=== PATIENT | male | born 1930 | race Caucasian/White ===

== ENCOUNTER 2019-07-18 16:28 | Inpatient (IN) | payer OTHER ==
[~2019-07-18] VITALS: Ht 167.6 cm; Wt 71.7 kg
[2019-07-18] VITALS (9 sets, daily range): BP systolic 124–147; BP diastolic 76–102
[2019-07-18 16:57] LABS: HEMATOCRIT 33.5 % (42.0-52.0); HEMOGLOBIN 11.4 gm/dL (14.0-18.0); MCH 32.8 pg (26.0-34.0); MCHC 33.9 g/dL (28.0-37.0); MCV 96.9 fL (80.0-100.0); MPV 10.5 fl. (7.2-11.1); NUCLEATED RBCS 0 /100WBC; PLATELET COUNT* 118 thou/uL (150-400); RBC 3.46 mil/uL (4.50-6.00); WBC 6.8 thou/uL (4.0-11.0)
[2019-07-18] MEDS ORDERED: ELIQUIS5 MG PO (16:58)
[2019-07-18] MEDS ORDERED: LASIX 40 MG TAB40 M2 PO (16:58)
[2019-07-18] MEDS ORDERED: KEFLEX500 M2 PO (16:58)
[2019-07-18] MEDS ORDERED: ASA81BEC PO (16:58)
[2019-07-18 17:07] LABS: APTT 28.1 Seconds (25.0-31.3); INR 1.7; PROTIME 16.7 Seconds (9.20-11.50)
[2019-07-18 17:09] LABS: CALCIUM 8.8 mg/dL (8.5-10.1); CREATININE 2.2 mg/dL (0.6-1.3); POTASSIUM 5.1 mmol/L (3.5-5.1)
[2019-07-18 17:20] LABS: ALBUMIN 3.4 g/dL (3.4-5.0); TOTAL BILIRUBIN 0.8 mg/dL (<0.1-1.0); TOTAL PROTEIN 8.2 g/dL (6.4-8.2)
[2019-07-18 17:48] LABS: ABSOLUTE LYMPHOCYTES 0.7 thou/uL (0.8-5.3); ABSOLUTE MONOCYTES 0.1 thou/uL (0.0-1.2); ABSOLUTE NEUTROPHILS 5.9 thou/uL (1.6-8.1); ANISOCYTOSIS 1+; PLATELET ESTIMATE DECREASED; POLYCHROMASIA Occasional
[2019-07-18] MEDS ORDERED: PENICILLIN VK500 M1 PO (18:54)
[2019-07-18] MEDS ORDERED: KLOR-CON 1010 MEQ PO (18:55)
[2019-07-18] MEDS ORDERED: IRON325 M1 PO (18:56)
[2019-07-18] MEDS ORDERED: VITAMIN D32000 UNI2 PO (18:58)
[2019-07-18 20:54] LABS: URINE BILIRUBIN NEGATIVE (Negative); URINE BLOOD NEGATIVE (Negative); URINE CLARITY CLEAR; URINE COLOR YELLOW; URINE GLUCOSE-RANDOM NEGATIVE (Negative); URINE KETONES NEGATIVE (Negative); URINE LEUKOCYTES-REFLEX NEGATIVE (Negative); URINE NITRITE-REFLEX NEGATIVE (Negative); URINE PROTEIN NEGATIVE (Negative); URINE UROBILINOGEN 0.2 E.U./dl (0.2-1.0)
[2019-07-19] VITALS (15 sets, daily range): BP systolic 89–123; BP diastolic 59–77
--- NOTE | 2019-07-19 08:51 | CARD ---
[address] [address] CARDIAC CATH REPORT Name: RENETTA COLLADO Room: [address] IN .R.#: [id number] Admission: 07/18/19 Attend Phys: Herve Alarcon MD, F Discharge: Date of : [birth year] Report #: [id number] THIS REPORT FOR: //name// cc: Sana Fierro NP, Stefany NP ~ THIS REPORT FOR: //name// APPROVED REPORT Study performed: 07/18/2019 16:35:44 Patient Status: ED Room #: Event Personnel: Herve Alarcon Director Of Estate, Allison Bourgeois RN RN, Dhruv Rodriguez RTR Scrub, Dalila Rosales RTR Monitor Exam: Temperary Pacemaker Insertion Indications: Complete Heart Block The patient is a 89 year-old male with a history of Syncope. Patient Info Anticoagulant Therapy: eliquis Conscious Sedation No sedation was given. Case start time was 17:29 and case end time was 17:36. Implanted Devices: temporary pacemaker lead Procedure The patient underwent informed consent. We discussed the details of the procedure including the risks, which include, but not limited to bleeding, infection, vascular damage, cardiac perforation, and pneumothorax. He understood these risks and was willing to proceed. As such, was brought to the EP/Cardiac Catheterization laboratory in a fasting and sedated state and prepped and draped in a The patient was prepped and draped in a sterile fashion. The right leg was infiltrated with 2% lidocaine. The right femoral vein was accessed. A 6 Fr sheath was inserted and a temperary pacing lead was inserted into the left ventricle. The temperary pacemaker was tested for capture. Capture threshold was noted. The sheath and temperary pacing lead was secured the right leg using 0 silk suture. A sterile dressing was place over site for protection. Electrode Parameters Ventricular Threshold: less than 1 [place] [address] CARDIAC CATH REPORT Name: RENETTA COLLADO Room: [address] IN [facility]#: [id number] Admission: 07/18/19 Attend Phys: Herve Alarcon MD, F Discharge: Date of : [birth year] Report #: [id number] Complications The patient tolerated the procedure well and there were no complications associated with the procedure. Findings Specimens Removed: No Estimated Blood Loss: 2 ml Conclusion successful placement of a temporary pacemaker lead <ELECTRONICALLY SIGNED> By: Herve Alarcon MD, [facility] 07/19/19 0850 0850 [id number] Alarcon MD, FACC /INF
--- NOTE | 2019-07-19 08:56 | CON ---
[address] [address] CONSULTATION Name: RENETTA COLLADO Room: [address] ADM IN M.R.#: [id number] Admission: 07/18/19 Attend Phys: Herve Alarcon MD, F Discharge: Date of : [birth year] Report #: [id number] THIS REPORT FOR: //name// cc: Sana Fierro NP, Stefany NP ~ THIS REPORT FOR: //name// CC: Herve Fierro DATE OF SERVICE: 07/18/2019 CARDIOLOGY CONSULTATION HISTORY OF PRESENT ILLNESS: The patient is an 89-year-old white male who I was asked to see in the Emergency Room today after he had evidence of complete heart block. Unfortunately, no old records are available. The patient has never been here to [place] before. There are no family members available. According to the patient, he has had a couple of coronary stents placed in the past. He denies any recent chest pain. Recently, he has been falling. He apparently had a syncopal spell. Today, his family called the ambulance. He was found to be in complete heart block. He was paced externally and was brought to the Emergency Room. I was asked to see him on an emergent basis. He denies any recent palpitations. He has a long history of shortness of breath. No significant edema. PAST MEDICAL HISTORY: He has had appendectomy, removal of a hemangioma. MEDICATIONS: Include aspirin, Eliquis, Lasix. ALLERGIES: He has no known drug allergies. FAMILY HISTORY: Negative for heart disease. SOCIAL HISTORY: He is . He and his live in [place]. No smoking. REVIEW OF SYSTEMS: He has no history of stroke, asthma, peptic ulcer disease, liver disease, cancer, psychiatric illness, chronic skin condition. PHYSICAL EXAMINATION: GENERAL: Revealed an elderly, frail-appearing male, appeared in no distress. VITAL SIGNS: He had a blood pressure of 100. Pulse is being externally paced at 80. HEENT: He was anicteric. Conjunctivae are pink. Mucous membranes were moist. CHEST: Clear [place] [address] CONSULTATION Name: RENETTA COLLADO Room: [address]#: [id number] Admission: 07/18/19 Attend Phys: Herve Alarcon MD, F Discharge: Date of : [birth year] Report #: [id number] CARDIOVASCULAR: Regular rate and rhythm after being paced. ABDOMEN: Soft. EXTREMITIES: Had no edema. Dorsalis pedis pulse cannot be palpated. IMPRESSION AND RECOMMENDATIONS: 1. Complete heart block. Recommend temporary pacemaker. 2. Use of Eliquis. Possible previous history of atrial fibrillation. We will obtain old records. 3. Coronary artery disease and previous stenting. No recent angina. 4. Chronic kidney disease. <ELECTRONICALLY SIGNED> By: Herve Alarcon MD, FACC 07/19/19 0856 1642 [id number] Ye Alarcon MD, [facility] /nt
--- NOTE | 2019-07-19 12:50 | 2DMMODE ---
[place] [address] 2 D/M-MODE ECHOCARDIOGRAM Name: RENETTA COLLADO Kya Room: [address] [facility] IN .R.#: [id number] Admission: 07/18/19 Attend Phys: Clarissa parra Sa Discharge: Date of : [birth year] Date of Service: 07/19/19 1248 Report #: [id number] THIS REPORT FOR: cc: Sana Fierro NP, Stefany NP Blick, David R. MD [facility] ~ APPROVED REPORT Study performed: 07/19/2019 10:51:59 EXAM: Comprehensive 2D, Doppler, and color-flow Echocardiogram Patient Location: In-Patient Room #: 002 Status: routine BSA: 1.86 HR: 70 bpm BP: 105/60 mmHg Rhythm: NSR Other Information Study Quality: Excellent Indications Abnormal ECG Syncope 2D Dimensions IVSd: 20.80 (7-11mm) LVOT Diam: 19.14 (18-24mm) LVDd: 44.70 mm PWd: 12.28 (7-11mm) Ascending Ao: 35.86 (22-36mm) LVDs: 39.87 (25-40mm) Aortic Root: 36.73 mm Volumes Left Atrial Volume (Systole) LA ESV Index: 55.70 mL/m2 Aortic Valve AoV Peak Abram.: 1.14 m/s AO Peak Gr.: 5.23 mmHg LVOT Max P.41 mmHg AO Mean Gr.: 2.61 mmHg LVOT Mean P.12 mmHg LVOT Max V: 0.78 m/s AO V2 VTI: 17.20 cm LVOT Mean V: 0.48 m/s DAMIÁN (VTI): 2.53 cm2 LVOT V1 VTI: 15.11 [place] [address] 2 D/M-MODE ECHOCARDIOGRAM Name: RENETTA COLLADO Room: [address] IN .R.#: [id number] Admission: 07/18/19 Attend Phys: Clarissa parra Sa Discharge: Date of : [birth year] Date of Service: 07/19/19 1248 Report #: [id number] AI Jenkins: 1.50 m/s2 AI PHT: 625.93 ms Mitral Valve E/A Ratio: 2.04 MV Decel. Time: 213.41 ms MV E Max Abram.: 0.65 m/s MV PHT: 61.89 ms MVA (PHT): 3.55 cm2 TDI E/Lateral E': 10.83 E/Medial E': 16.25 Medial E' Abram.: 0.04 m/s Lateral E' Abram.: 0.06 m/s Pulmonary Valve PV Peak Abram.: 0.77 m/s PV Peak Gr.: 2.39 mmHg Tricuspid Valve RAP Estimate: 5.00 mmHg TR Peak Gr.: 43.88 mmHg RVSP: 48.00 mmHg PA Pressure: 48.00 mmHg Left Ventricle The left ventricle is normal size. paradoxical septal motion consistent with a paced rhythm moderate concentric left ventricular hypertrophy. Left ventricular systolic function is mildly decreased. LVEF is 40-45%. Grade IV - fixed restrictive diastolic dysfunction. Right Ventricle Right ventricle is dilated. The right ventricular systolic function is normal. Pacemaker lead is present in the right ventricle. Atria Left atrium is severely dilated. Right atrium is dilated. Aortic Valve Mild aortic valve sclerosis. Mild aortic regurgitation. There is no aortic valvular stenosis. Mitral Valve There is mitral annular calcification. Moderate mitral regurgitation. No evidence of mitral valve stenosis[place] [address] 2 D/M-MODE ECHOCARDIOGRAM Name: RENETTA COLLADO Room: [address] IN [facility]#: [id number] Admission: 07/18/19 Attend Phys: Clarissa parra Sa Discharge: Date of : [birth year] Date of Service: 07/19/19 1248 Report #: [id number] The tricuspid valve is normal in structure. Mild tricuspid regurgitation. estimated pa pressure 40 mm Hg Pulmonic Valve The pulmonary valve is normal in structure. Mild pulmonic regurgitation. Great Vessels The aortic root is normal in size. IVC is normal in size and collapses >50% with inspiration. Pericardium Moderate circumferential pericardial effusion. <Conclusion> moderate concentric left ventricular hypertrophy. LVEF is 40-45%. Left atrium is severely dilated. Right atrium is dilated. Mild aortic valve sclerosis. Mild aortic regurgitation. Moderate mitral regurgitation. Mild tricuspid regurgitation. estimated pa pressure 40 mm Hg Moderate circumferential pericardial effusion. <ELECTRONICALLY SIGNED> By: Herve Alarcon MD, FACC 07/19/19 1248 1248 1248 Herve Alarcon MD, FACC /INF
[2019-07-19 13:56] LABS: APTT 29.1 Seconds (25.0-31.3); INR 1.6; PROTIME 16.2 Seconds (9.20-11.50)
[2019-07-20 00:16] VITALS: BP 110/53
[2019-07-20 04:02] VITALS: BP 125/65
[2019-07-20 04:14] LABS: HEMATOCRIT 31.4 % (42.0-52.0); HEMOGLOBIN 10.7 gm/dL (14.0-18.0); MCHC 34.2 g/dL (28.0-37.0); MCV 96.6 fL (80.0-100.0); MPV 9.6 fl. (7.2-11.1); RBC 3.25 mil/uL (4.50-6.00); RDW-CV 16.3 % (10.5-14.5); WBC 6.9 thou/uL (4.0-11.0)
[2019-07-20 04:38] LABS: CALCIUM 8.3 mg/dL (8.5-10.1); CREATININE 1.9 mg/dL (0.6-1.3); MAGNESIUM 2.2 mg/dL (1.8-2.4); POTASSIUM 4.6 mmol/L (3.5-5.1)
[2019-07-20 04:42] LABS: ALBUMIN 2.7 g/dL (3.4-5.0); CALCIUM 8.3 mg/dL (8.5-10.1); CREATININE 1.8 mg/dL (0.6-1.3); POTASSIUM 4.7 mmol/L (3.5-5.1); TOTAL BILIRUBIN 0.9 mg/dL (<0.1-1.0)
[2019-07-20 07:30] VITALS: BP 126/64
--- NOTE | 2019-07-20 09:39 | CARD ---
[address] [address] CARDIAC CATH REPORT Name: HEAVENRENETTA Kya Room: [address] IN .R.#: [id number] Admission: 07/18/19 Attend Phys: Clarissa parra Davis Discharge: Date of : [birth year] Report #: [id number] THIS REPORT FOR: //name// cc: Sana Fierro NP, Stefany NP ~ THIS REPORT FOR: //name// APPROVED REPORT Study performed: 07/19/2019 15:07:22 Patient Status: In-Patient Room #: Exam: Insertion of Single Chamber Permanent Pacemaker Indications: Sick Sinus Syndrome/Tachy Bethel Syndrome The patient is a 89 year-old male with a history of Syncope. Patient Info Anticoagulant Therapy: eliquis Implanted Devices: permanent single lead MRI compatible [employer] pacemaker Procedure The patient underwent informed consent. We discussed the details of the procedure including the risks, which include, but not limited to bleeding, infection, vascular damage, cardiac perforation, and pneumothorax. He understood these risks and was willing to proceed. As such, he was brought to the EP/Cardiac Catheterization laboratory in a fasting and sedated state and prepped and draped in a sterile fashion, received IV antibiotics prior to initiation of the procedure and a venogram was performed showing patency of the left axillary vein. The patient underwent conscious sedation, with no related complications. The patient was brought to the EP/Cardiac Catheterization laboratory and the left chest and shoulder were prepped and draped in a sterile manner. During this case, Fluoroscopy and visipaque 10cc were used for imaging. The left subclavian region was infiltrated with 2% Lidocaine subcutaneous anesthesia. A transverse incision was made in the left upper chest cavity. The subcutaneous pocket was formed via blunt dissection. Percutaneous venous access was achieved and an introducer [place] [address] CARDIAC CATH REPORT Name: RENETTA COLLADO Room: [address] IN .R.#: [id number] Admission: 07/18/19 Attend Phys: Clarissa Ashford Discharge: Date of : [birth year] Report #: [id number] the left Subclavian vein. Sheaths were positions using the modified Seldinger technique Through the introducer sheaths the ventricular lead wire was positioned in the right atrial appendage and right ventricular apex respectively. Utilizing fluoroscopic guidance, the ventricular lead wire was advanced over the wires and positioned in the right atria and right ventricle respectively. Capturing and sensing thresholds were verified. Electrode Parameters R Wave: 4.0 mv Ventricular Threshold: 0.9 v @ .4ms Ventricular Resistance: 489 ohm Single Chamber The ventricular lead was attached to the appropriate receptacle on the pulse generator and set screws firmly tightened to insure adequate contact and stability. The lead and pulse generator were placed into the subcutaneous pocket. Sharp and sponge counts were confirmed to be correct. At this time the pocket was closed subcutaneously with a 0 Vicryl and the skin was closed with a 4.0 Vicryl. The operative site was dressed in sterile fashion with skin affix and the patient was transferred to the floor in stable condition. Complications The patient tolerated the procedure well and there were no complications associated with the procedure. Since the patient had been on Eliquis, the pocket was irrigated with d-stat flowable solution. Findings Specimens Removed: No Estimated Blood Loss: 5 cc Conclusion successful placement of a single lead pacemaker <ELECTRONICALLY SIGNED> By: eHrve Alarcon MD, FACC 07/20/1937 7 Herve Alarcon MD, FACC /INF
--- NOTE | 2019-07-20 09:45 | EKG ---
[place] [address] ELECTROCARDIOGRAM REPORT Name: RENETTA COLLADO Room: [address] ADM IN .R.#: [id number] Admission: 07/18/19 Attend Phys: Clarissa parra Sa Discharge: Date of : [birth year] Date of Service: 07/20/19 0348 Report #: [id number] THIS REPORT FOR: //name// [facility] Test Date: 2019-07-20 Test Time: 03:48:56 Pat Name: RENETTA COLLADO Department: Room: [facility] Gender: M Fundraising Specialist: HENRY : 1930 Requested By: Herve Alarcon Order Number: [id number] Dee MD: Herve Alarcon Measurements Intervals [place] Rate: 60 P: 0 WV: 200 QRS: -85 QRSD: 145 T: 107 QT: 515 QTc: 515 Interpretive Statements Ventricular-paced complexes No further analysis attempted due to paced rhythm No previous ECG available for comparison Electronically Signed On 07-20-2019 9:44:12 [employer]GER by Herve Alarcon [email or web address] <ELECTRONICALLY SIGNED> By: Herve Alarcon MD, [facility] 07/20/19 0944 0348 0348 Herve Alarcon MD, [facility] /EPI
[2019-07-20 11:36] VITALS: BP 110/55
[2019-07-20 15:23] VITALS: BP 110/55
[2019-07-20 15:45] VITALS: BP 120/54
== END 2019-07-20 17:10 | disposition home or self-care (01) | DRG 242 ==
LOC: M.ERS 16:28 → M.ICU 17:19 → M.TBA-CV 17:19 → M.2W 17:19 → M.ICU 18:22 → M.2W 07-19 17:42
PROVIDERS: Emergency Medicine Emergency Medical Services; Internal Medicine Cardiovascular Disease; ADMIT Family Medicine
PROC: 0JH604Z Insertion of Pacemaker, Single Chamber into Chest Subcutaneous Tissue and Fascia, Open Approach (ICD-10-PCS; principal; 2019-07-19)
PROC: B517YZZ Fluoroscopy of Left Subclavian Vein using Other Contrast (ICD-10-PCS; principal; 2019-07-19)
PROC: 02H63JZ Insertion of Pacemaker Lead into Right Atrium, Percutaneous Approach (ICD-10-PCS; principal; 2019-07-19)
PROC: 02HK3JZ Insertion of Pacemaker Lead into Right Ventricle, Percutaneous Approach (ICD-10-PCS; principal; 2019-07-19)
DX: I44.2 Atrioventricular block, complete (principal); N17.0 Acute kidney failure with tubular necrosis; D68.59 Other primary thrombophilia; I31.3 Pericardial effusion (noninflammatory); K75.89 Other specified inflammatory liver diseases; I48.20 Chronic atrial fibrillation, unspecified; N18.3 Chronic kidney disease, stage 3 (moderate); C61 Malignant neoplasm of prostate; R79.89 Other specified abnormal findings of blood chemistry; I95.9 Hypotension, unspecified; I25.10 Atherosclerotic heart disease of native coronary artery without angina pectoris; Z79.01 Long term (current) use of anticoagulants; Z91.81 History of falling; Z90.49 Acquired absence of other specified parts of digestive tract; Z86.010 Personal history of colon polyps; Z79.82 Long term (current) use of aspirin; Z79.899 Other long term (current) drug therapy; Z95.5 Presence of coronary angioplasty implant and graft

== ENCOUNTER → 2020-03-25 | Outpatient (CLI) | payer OTHER ==
[~2020-03-25] MED LIST: ASA81BEC PO; ELIQUIS5 MG PO; IRON325 M1 PO; KEFLEX500 M2 PO; KLOR-CON 1010 MEQ PO; LASIX 40 MG TAB40 M2 PO; PENICILLIN VK500 M1 PO; VITAMIN D32000 UNI2 PO
[2020-03-25 10:44] LABS: CALCIUM 9.3 mg/dL (8.5-10.1); CREATININE 1.6 mg/dL (0.6-1.3); POTASSIUM 4.1 mmol/L (3.5-5.1)
== END ==
LOC: M.LAB 10:05
PROVIDERS: ATTEND Nurse Practitioner
DX: N18.9 Chronic kidney disease, unspecified (principal)